=== PATIENT | female | born 1945 | race Caucasian/White ===

== ENCOUNTER 2022-05-18 10:51 | Inpatient (IN) | payer OTHER ==
[~2022-05-18] VITALS: Ht 157.5 cm; Wt 58.5 kg
[2022-05-18 11:08] VITALS: BP 171/76
[2022-05-18] MEDS ORDERED: ONDANSETRON 4 MG/2 ML VIAL IVP ONE ×2 (12:35→15:10)
[2022-05-18] MEDS ORDERED: MORPHINE SULFATE 2 MG/ML SYR IVP ONE (12:35)
[2022-05-18] MEDS ORDERED: NACL 0.9% 1,000 ML IV SCH (12:35)
[2022-05-18 13:21] LABS: HEMATOCRIT 44.4 % (36-48); HEMOGLOBIN 14.4 g/dL (12.0-16.0); MEAN CORPUSCULAR HEMOGLOBIN 28 pg (27-31); MEAN CORPUSCULAR HGB CONC 32 g/dL (33-37); MEAN CORPUSCULAR VOLUME 85.4 fL (80-94); PLATELET COUNT (AUTO) 269 K/uL (140-450); WHITE BLOOD COUNT (AUTO) 20.7 K/uL (4.8-10.8)
[2022-05-18 13:39] LABS: LYMPHOCYTES % (MANUAL) 2 % (20-46); MONOCYTES % (MANUAL) 4 % (5-12)
[2022-05-18 13:48] LABS: ALBUMIN 3.8 g/dL (3.4-5.0); ANION GAP 22.6 (8-16); ASPARTATE AMINOTRANSFERASE 84 U/L (15-37); CARBON DIOXIDE 20.3 mmol/L (21-32); CHLORIDE 103 mmol/L (98-107); CREATININE 1.2 mg/dL (0.6-1.3); GLUCOSE 369 mg/dL (74-106); LIPASE 12616 U/L (73-393); POTASSIUM 3.9 mmol/L (3.5-5.1); SODIUM SERUM 142 mmol/L (136-145); TOTAL BILIRUBIN 0.6 mg/dL (0.0-1.0); UREA NITROGEN, BLOOD 33 mg/dL (7-18)
[2022-05-18] MEDS ORDERED: MORPHINE SULFATE 4 MG/ML SYR IVP ONE (15:10)
[2022-05-18] MEDS ORDERED: PIPERACILLIN/TAZOBACTAM 3.375 GM in DEXTROSE 5% 50 ML IV ONE (15:10)
[2022-05-18] MEDS ORDERED: PIPERACILLIN/TAZOBACTAM 3.375 GM VIAL IV ONE (15:13)
[2022-05-18 15:20] LABS: PROTHROMBIN TIME 11.3 secs (10.8-13.4)
[2022-05-18] MEDS ORDERED: NACL 0.9% 1,000 ML IV ONE (15:55)
[2022-05-18] MEDS ORDERED: HYDR-2853 PO (16:26)
[2022-05-18] MEDS ORDERED: GLIP10TA12 PO (16:26)
[2022-05-18] MEDS ORDERED: LOVA40TA4 PO (16:26)
[2022-05-18] MEDS ORDERED: AMLO2.5T PO (16:26)
[2022-05-18] MEDS ORDERED: METF-346 PO (16:26)
[2022-05-18 16:29] LABS: APPEARANCE,URINE CLEAR (CLEAR); BILIRUBIN,URINE NEGATIVE (NEGATIVE); BLOOD, URINE NEGATIVE (NEGATIVE); COLOR,URINE YELLOW (YELLOW); LEUKOCYTE ESTERASE ,URINE NEGATIVE (NEGATIVE); NITRITE, URINE NEGATIVE (NEGATIVE); PH,URINE 5.5 (5.0-9.0); UGLUCOSE 3+ (NEGATIVE)
[2022-05-18] MEDS ORDERED: DOCUSATE SODIUM 100 MG GELCAP PO PRN (18:20)
[2022-05-18] MEDS ORDERED: DEXTROSE 50% 50 ML SYR IVP PRN (18:20)
[2022-05-18] MEDS ORDERED: HYDROcodone/APAP 7.5/325 MG 1 TAB PO PRN (18:20)
[2022-05-18] MEDS ORDERED: ZOLPIDEM 5 MG TAB PO PRN (18:20)
[2022-05-18] MEDS ORDERED: ACETAMINOPHEN 325 MG TAB PO PRN (18:20)
[2022-05-18] MEDS ORDERED: guaiFENesin DM 200/20 MG-10 ML 10 ML UDC PO PRN (18:20)
[2022-05-18] MEDS ORDERED: hydrALAZINE 20 MG/ML VIAL IVP PRN (18:20)
[2022-05-18] MEDS ORDERED: POTASSIUM CHLORIDE 10 MEQ TABER PO PRN (18:20)
[2022-05-18] MEDS: LACTATED RINGERS 1,000 ML IV SCH (18:56)
[2022-05-18 19:07] LABS: MAGNESIUM 1.2 mg/dL (1.8-2.4); PHOSPHORUS 4.9 mg/dL (2.5-4.9)
[2022-05-18 20:35] VITALS: BP 150/69
[2022-05-18] MEDS ORDERED: MAG SULF 2000 MG/WATER PREMIX 100 ML IV SCH (20:50)
[2022-05-18] MEDS: BLOOD GLUCOSE MONITORING 1 DEV DEV FS SCH (21:00)
[2022-05-18] MEDS: MORPHINE SULFATE 2 MG/ML SYR IVP PRN (21:05)
[2022-05-18] MEDS: INSULIN LISPRO SLIDING SCALE 100 UNITS/ML VIAL SUBQ PRN (22:24)
[2022-05-18] MEDS ORDERED: INSULIN LANTUS 100 UNITS/ML 10 ML VIAL SUBQ SCH (22:35)
[2022-05-19] MEDS: ONDANSETRON 4 MG/2 ML VIAL IM/IVP PRN (01:52)
[2022-05-19] MEDS: LACTATED RINGERS 1,000 ML IV SCH ×5 (02:40→22:15)
[2022-05-19 03:18] LABS: BARBITURATE, URINE NEGATIVE ng/ml (NEG <=200); BENZODIAZEPINE, URINE NEGATIVE ng/mL (NEG <=200); CANNABINOID, URINE NEGATIVE ng/mL (NEG <=50); COCAINE, URINE NEGATIVE ng/mL (NEG <=300); OPIATE, URINE POSITIVE ng/mL (NEG <=2000); PHENCYCLIDINE SCREEN,URINE NEGATIVE ng/mL (NEG <=25)
[2022-05-19 04:00] VITALS: BP 145/67
[2022-05-19 05:32] LABS: BASOPHILS % (AUTO) 0.1 % (0.0-2.0); HEMATOCRIT 41.9 % (36-48); HEMOGLOBIN 13.7 g/dL (12.0-16.0); LYMPHOCYTES # (AUTO) 1.4 K/uL (2.5-16.5); LYMPHOCYTES % (AUTO) 7.2 % (20.5-51.1); MEAN CORPUSCULAR HEMOGLOBIN 28 pg (27-31); MEAN CORPUSCULAR HGB CONC 33 g/dL (33-37); MEAN CORPUSCULAR VOLUME 84.6 fL (80-94); MONOCYTES # (AUTO) 0.8 K/uL (0.8-1.0); NEUTROPHILS % (AUTO) 88.7 % (42.2-75.2); PLATELET COUNT (AUTO) 239 K/uL (140-450); RED BLOOD CELL COUNT(AUTO) 4.95 MIL/uL (4.20-5.40); RED CELL DISTRIBUTION WIDTH 13.4 % (11.6-13.7); WHITE BLOOD COUNT (AUTO) 19.1 K/uL (4.8-10.8)
[2022-05-19 05:48] LABS: ANION GAP 14.1 (8-16); CARBON DIOXIDE 23.3 mmol/L (21-32); CHLORIDE 104 mmol/L (98-107); CREATININE 1.3 mg/dL (0.6-1.3); GLUCOSE 259 mg/dL (74-106); POTASSIUM 3.4 mmol/L (3.5-5.1); SODIUM SERUM 138 mmol/L (136-145); UREA NITROGEN, BLOOD 36 mg/dL (7-18)
[2022-05-19 06:01] LABS: BILIRUBIN,DIRECT 0.2 mg/dL (0.0-0.3); TOTAL BILIRUBIN 0.7 mg/dL (0.0-1.0)
[2022-05-19] MEDS: INSULIN LISPRO SLIDING SCALE 100 UNITS/ML VIAL SUBQ PRN ×4 (06:35→20:57)
[2022-05-19] MEDS: BLOOD GLUCOSE MONITORING 1 DEV DEV FS SCH ×4 (06:36→20:58)
[2022-05-19 08:00] VITALS: BP 132/81
[2022-05-19] MEDS: ATORVASTATIN 20 MG TAB PO SCH (08:23)
[2022-05-19] MEDS: lisinopriL 20 MG TAB PO SCH (08:23)
[2022-05-19] MEDS: amLODIPine 5 MG TAB PO SCH (08:24)
[2022-05-19] MEDS: hydroCHLOROthiazide 25 MG TAB PO SCH (08:24)
[2022-05-19] MEDS: MORPHINE SULFATE 2 MG/ML SYR IVP PRN ×3 (08:24→20:48)
[2022-05-19] MEDS ORDERED: CRUSHER, PILL MC ONE (08:31)
[2022-05-19] MEDS ORDERED: NON-FORMULARY ITEM (Lisinopril/Hydrochlorothiazide (Lisinopril-Hctz 20-25 mg Tab) 1 TAB) PO SCH (09:00)
[2022-05-19] MEDS ORDERED: NON-FORMULARY ITEM (Lovastatin 1 TAB) PO SCH (09:00)
[2022-05-19 12:00] VITALS: BP 109/64
[2022-05-19 16:00] VITALS: BP 128/75
[2022-05-19 20:00] VITALS: BP 136/76
[2022-05-20] VITALS: BP 115/75
[2022-05-20] MEDS: ONDANSETRON 4 MG/2 ML VIAL IM/IVP PRN ×2 (03:13→20:33)
[2022-05-20] MEDS: MORPHINE SULFATE 2 MG/ML SYR IVP PRN ×3 (03:31→17:43)
[2022-05-20] MEDS: LACTATED RINGERS 1,000 ML IV SCH ×3 (03:31→17:02)
[2022-05-20 04:00] VITALS: BP 131/75
[2022-05-20 06:18] LABS: HEMOGLOBIN 13.2 g/dL (12.0-16.0); LYMPHOCYTES % (AUTO) 4.9 % (20.5-51.1); MEAN CORPUSCULAR HEMOGLOBIN 28 pg (27-31); MEAN CORPUSCULAR HGB CONC 33 g/dL (33-37); MEAN CORPUSCULAR VOLUME 84.8 fL (80-94); MONOCYTES # (AUTO) 0.7 K/uL (0.8-1.0); MONOCYTES % (AUTO) 3.4 % (1.7-9.3); NEUTROPHILS # (AUTO) 19.1 K/uL (1.8-7.7); NEUTROPHILS % (AUTO) 91.7 % (42.2-75.2); PLATELET COUNT (AUTO) 225 K/uL (140-450); RED BLOOD CELL COUNT(AUTO) 4.71 MIL/uL (4.20-5.40); RED CELL DISTRIBUTION WIDTH 13.7 % (11.6-13.7); WHITE BLOOD COUNT (AUTO) 20.8 K/uL (4.8-10.8)
[2022-05-20] MEDS: BLOOD GLUCOSE MONITORING 1 DEV DEV FS SCH ×4 (06:45→20:33)
[2022-05-20] MEDS: INSULIN LISPRO SLIDING SCALE 100 UNITS/ML VIAL SUBQ PRN ×4 (06:47→20:32)
[2022-05-20 06:54] LABS: ANION GAP 12.8 (8-16); CARBON DIOXIDE 22.5 mmol/L (21-32); CHLORIDE 104 mmol/L (98-107); CREATININE 1.1 mg/dL (0.6-1.3); GLUCOSE 212 mg/dL (74-106); POTASSIUM 4.3 mmol/L (3.5-5.1); SODIUM SERUM 135 mmol/L (136-145); UREA NITROGEN, BLOOD 36 mg/dL (7-18)
[2022-05-20 08:00] VITALS: BP 140/82
[2022-05-20] MEDS: ATORVASTATIN 20 MG TAB PO SCH (09:38)
[2022-05-20] MEDS: amLODIPine 5 MG TAB PO SCH (09:39)
[2022-05-20] MEDS: lisinopriL 20 MG TAB PO SCH (09:39)
[2022-05-20] MEDS: hydroCHLOROthiazide 25 MG TAB PO SCH (09:40)
[2022-05-20 12:00] VITALS: BP 139/79
[2022-05-20 12:28] LABS: ALBUMIN 2.1 g/dL (3.4-5.0); BILIRUBIN,DIRECT 0.2 mg/dL (0.0-0.3); TOTAL BILIRUBIN 0.7 mg/dL (0.0-1.0)
[2022-05-20] MEDS ORDERED: PANTOPRAZOLE 40 MG INJ VIAL IVP SCH (14:20)
[2022-05-20 15:00] LABS: CHOL/HDL RATIO 1.7 (1-4.5)
[2022-05-20] MEDS ORDERED: CALCIUM GLUC 1 GM/50 mL NS BAG 50 ML IV SCH (15:00)
[2022-05-20 16:00] VITALS: BP 141/77
[2022-05-20] MEDS ORDERED: MAG SULF 2000 MG/WATER PREMIX 100 ML IV SCH (16:00)
[2022-05-20 20:00] VITALS: BP 140/80
== END 2022-05-20 21:20 | disposition short-term general hospital (02) | DRG 438 ==
LOC: MED 10:51 → MTU 18:14
PROVIDERS: ADMIT Student in an Organized Health Care Education/Training Program; ATTEND Student in an Organized Health Care Education/Training Program
DX: K85.10 Biliary acute pancreatitis without necrosis or infection (principal); E43 Unspecified severe protein-calorie malnutrition; I21.A1 Myocardial infarction type 2; E87.2 Acidosis; I10 Essential (primary) hypertension; E11.9 Type 2 diabetes mellitus without complications; E78.5 Hyperlipidemia, unspecified; K80.20 Calculus of gallbladder without cholecystitis without obstruction; E88.09 Other disorders of plasma-protein metabolism, not elsewhere classified; E87.6 Hypokalemia; E83.51 Hypocalcemia; E86.0 Dehydration; E83.42 Hypomagnesemia; R74.01 Elevation of levels of liver transaminase levels; Z20.822 Contact with and (suspected) exposure to COVID-19; K76.0 Fatty (change of) liver, not elsewhere classified; K57.90 Diverticulosis of intestine, part unspecified, without perforation or abscess without bleeding; Z88.6 Allergy status to analgesic agent; Z79.899 Other long term (current) drug therapy; Z68.23 Body mass index [BMI] 23.0-23.9, adult
CPT/HCPCS: 36415; 76705; 80048; 80053; 80076; 80305; 81003; 82948; 83605; 83615; 83690; 83735; 83880; 84100; 84484; 85025; 85610; 85730; 86140; 87040; 87081; 87086; 93005; 96361; 96365; 96375; 96376; 97116; 99291; C9113; J0610; J1815; J2270; J2405; J2543; J3475; Q0092